=== PATIENT | male | born 1940 | race Caucasian/White ===

== ENCOUNTER 2016-10-15 11:52 | Emergency (ER) | payer MEDICARE, OTHER ==
[~2016-10-15 11:52] MED LIST: ALBUTEROL S3 ML/VIAL NEB; ASPIR 8181 MG PO; FLOMAX0.4 MG PO; IPRAT-ALBUT 0.5-3 ML NEB; LEVAQUIN750 MG PO; LORTAB 7.5-3251 EACH PO; METOPROLOL TART25 MG PO; PERFOROMIS20 MCG/2 M NEB; PREDNISONE20 MG PO; PROSCAR5 MG PO; PULMICORT0.5 MG/2 M NEB
== END 2016-10-15 15:15 | disposition home or self-care (01) ==
LOC: ER 11:52
DX: C34.90 Malignant neoplasm of unspecified part of unspecified bronchus or lung (principal); I25.810 Atherosclerosis of coronary artery bypass graft(s) without angina pectoris; Z87.891 Personal history of nicotine dependence; Z79.82 Long term (current) use of aspirin; Z79.899 Other long term (current) drug therapy
CPT/HCPCS: 36415

== ENCOUNTER 2016-11-24 16:07 | Emergency (ER) | payer MEDICARE, OTHER | END 2016-11-24 18:05 | disposition home or self-care (01) | LOC: ER 16:07 | DX: S29.011A Strain of muscle and tendon of front wall of thorax, initial encounter (principal); C80.1 Malignant (primary) neoplasm, unspecified; E78.5 Hyperlipidemia, unspecified; I10 Essential (primary) hypertension; F17.210 Nicotine dependence, cigarettes, uncomplicated; Z95.1 Presence of aortocoronary bypass graft; Z79.82 Long term (current) use of aspirin; Z79.899 Other long term (current) drug therapy ==

== ENCOUNTER 2016-11-26 10:57 | Emergency (ER) | payer MEDICARE, OTHER | END 2016-11-26 19:55 | disposition short-term general hospital (02) | LOC: ER 10:57 | DX: I11.0 Hypertensive heart disease with heart failure (principal); I50.9 Heart failure, unspecified; R42 Dizziness and giddiness; F17.210 Nicotine dependence, cigarettes, uncomplicated; Z95.1 Presence of aortocoronary bypass graft; Z79.82 Long term (current) use of aspirin; Z79.899 Other long term (current) drug therapy | CPT/HCPCS: 36415; 87502; 94640; 96365; 96366; 96375; Q9967 ==